=== PATIENT | female | born 1970 | race Caucasian/White ===

== ENCOUNTER → 2019-08-22 12:42 | Outpatient (CLI) | payer OTHER, SELFPAY ==
--- NOTE | ~2019-08-22 | MR_ITS ---
EXAMINATION: MR ankle RT wo con DATE: 08/22/2019 13:28 INDICATION: Right ankle injury presenting with pain, swelling and bruising. TECHNIQUE: Magnetic resonance imaging (MRI) of the right ankle was performed without intravenous cont rast. Sequences included sagittal, coronal, and axial proton-density weighted fast spin echo without and with fat saturation. COMPARISON: None. FINDINGS: Medial ankle ligaments: Deep and superficial deltoid ligaments as well as the spring ligament are normal. Lateral ankle ligaments: The anterior and posterior inferior tibiofibular ligaments are normal. The anterior talofibular, calc aneofibular and posterior talofibular ligaments are normal. Tendons: Achilles tendon is normal. The peroneus longus and brevis tendons are normal. The tibialis anterior a nd extensor hallucis longus and extensor digitorum longus tendons are normal. The tibialis posterior, flexor digitorum longus and flexor hallucis longus tendons are normal. Plantar fascia: Plantar aponeurosis is normal. Bones/other: Alignment is normal. Marrow edema along the medial inferior articular surface of the head of the talu s without evident fracture which given history of trauma or represent a bone contusion. Similar small region of mild marrow edema without fracture line along the superolateral aspect of the posterior ca lcaneus near but not underlying the articular surface of the posterior facet of the subtalar joint. F inally there is marrow edema without evident fracture line along the lateral margin of the anterior c alcaneus abutting the calcaneocuboid articulation which could also represent a bone contusion althoug h there is thickening and increased signal of the dorsal calcaneonavicular ligament suggesting possib le associated partial tear. Joint spaces appear relatively preserved. Mild subarticular cystic change along the medial malleolus. Fluid: Physiologic amount of fluid in the joint spaces. No abnormal fluid collections. IMPRESSION: 1. Marrow edema along the inferior head of the talus, at the anterior calcaneus and posterior calcane us without evident fracture lines most likely related to bone contusions. 2. Possible associated partial tear of the dorsal calcaneocuboid ligament. Reviewed, dictated and finalized at location A. OSIVES HANDLER IMPRESSION: 1. Marrow edema along the inferior head of the talus, at the anterior calcaneus and posterior calcaneus without evident fracture lines most likely related to bone contusions. 2. Possible associated partial tear of the dorsal calcaneocuboid ligament.
== END ==
PROVIDERS: Visit Provider Emergency Medicine
DX: M79.89 Other specified soft tissue disorders (principal)
CPT/HCPCS: 73721

== ENCOUNTER 2019-09-19 14:27 | Outpatient (CLI) | payer OTHER, SELFPAY ==
--- NOTE | ~2019-09-19 | MM_ITS ---
EXAMINATION: MM screening chang BI w leta HISTORY: Screening mammogram TECHNIQUE: Craniocaudal and mediolateral oblique 3-D tomosynthesis images were obtained and synthetic 2-D images were generated. CAD analysis was submitted and interpreted. COMPARISON: 05/24/2018 bilateral digital screening mammogram BREAST PARENCHYMAL COMPOSITION: There are scattered areas of fibroglandular density. FINDINGS: There is no evidence of suspicious mass, calcification, or architectural distortion to sugg est malignancy in either breast. There has been no suspicious interval change. IMPRESSION: 1. No mammographic evidence of malignancy. 2. Recommend routine screening mammography in one year. BI-RADS Category 1: Negative Reviewed, dictated and finalized at location A. OUT FORMER
== END 2019-09-19 14:28 | disposition home or self-care (01) ==
LOC: ANHIMG 14:31
PROVIDERS: PCP Emergency Medicine; Visit Provider Obstetrics & Gynecology
DX: Z12.31 Encounter for screening mammogram for malignant neoplasm of breast (principal)
CPT/HCPCS: 77063; 77067

== ENCOUNTER 2021-01-07 14:54 | Outpatient (CLI) | payer OTHER, SELFPAY ==
--- NOTE | ~2021-01-07 | MM_ITS ---
EXAMINATION: MM screening chang BI w leta HISTORY: Screening mammogram TECHNIQUE: Craniocaudal and mediolateral oblique 3-D tomosynthesis images were obtained and synthetic 2-D images were generated. CAD analysis was submitted and interpreted. COMPARISON: 09/19/2019, 06/03/2018 bilateral digital screening mammogram examinations BREAST PARENCHYMAL COMPOSITION: There are scattered areas of fibroglandular density. FINDINGS: Stable fibroglandular asymmetry. There is no evidence of suspicious mass, calcification, or architectural distortion to suggest malignancy in either breast. There has been no suspicious interv al change. IMPRESSION: 1. No mammographic evidence of malignancy. 2. Recommend routine screening mammography in one year. BI-RADS Category 1: Negative Reviewed, dictated and finalized at location A.
== END 2021-01-07 14:55 | disposition home or self-care (01) ==
LOC: ANHIMG 14:56
PROVIDERS: PCP Emergency Medicine; Visit Provider Obstetrics & Gynecology
DX: Z12.31 Encounter for screening mammogram for malignant neoplasm of breast (principal)
CPT/HCPCS: 77063; 77067

== ENCOUNTER 2021-12-28 06:16 | Emergency (ER) | payer OTHER, SELFPAY ==
--- NOTE | ~2021-12-28 | XR_ITS ---
XR chest 2V DATE: 12/28/2021 07:19 INDICATION: Left-sided chest pressure TECHNIQUE: PA and lateral views COMPARISON: None FINDINGS: Normal heart size. Prominent right cardiac phrenic fat pad. There is mild aortic unfolding. No hilar or mediastinal enlargement. No pulmonary infiltrate or consolidation, pleural effusion or pulmonary vascular congestion or pneumo thorax. Included skeletal structures are unremarkable. IMPRESSION: No active cardiopulmonary disease Reviewed, dictated and finalized at location A.
[2021-12-28 06:26] VITALS: BP 133/98; PULSE 64; RESP 13; TEMP 36.7; O2SAT 100
[2021-12-28 06:28] VITALS: PULSE 68
--- NOTE | 2021-12-28 06:28 | ECG_ITS ---
Measurements Intervals [place] Rate: 66 P: 31 KS: 162 QRS: 59 QRSD: 82 T: 56 QT: 405 QTc: 427 Interpretive Statements SINUS RHYTHM NORMAL ECG NO PREVIOUS ECG AVAILABLE FOR COMPARISON Electronically Signed On 12-28-2021 10:30:32 CDT by Jewel Fall M.D.
--- NOTE | 2021-12-28 06:33 | ED.CHESTPAIN ---
HPI - Chest Pain General Chief Complaint: Chest Pain <Andriy Barajas MD - Last Filed: 12/28/21 06:41> Stated Complaint: chest pain <Andriy Barajas MD - Last Filed: 12/28/21 06:41> Time Seen by Provider: 12/28/21 06:33 <Andriy Barajas MD - Last Filed: 12/28/21 06:41> History of Present Illness HPI narrative: Patient is a 51-year-old female who presents ER with left-sided chest pain. Left-sided chest up near the clavicle. Aching and sharp intermittently. Began at midnight. She felt like it radiated into her neck and then she felt some tingling in her pinky finger. She had a father who had AK at age 45. This is concerned her and prompted her to seek evaluation. No exertional chest pain or discomfort. No dyspnea or nausea or vomiting. No known injury. <Andriy Barajas MD - Last Filed: 12/28/21 06:41> Related Data Allergies/Adverse Reactions: Allergies Allergy/AdvReac Type Severity Reaction Status Date / Time shellfish derived Allergy Unknown Verified 08/09/19 22:38 Sulfa (Sulfonamide Allergy Unknown Verified 08/09/19 22:38 Antibiotics) <Andriy Barajas MD - Last Filed: 12/28/21 06:41> Review of Systems Review of Systems: All systems reviewed & are unremarkable except as noted in HPI and below <Andriy Barajas MD - Last Filed: 12/28/21 06:41> Constitutional: Constitutional: Denies chills and Denies fever(s) <Andriy Barajas MD - Last Filed: 12/28/21 06:41> Cardiovascular: Cardiovascular: Reports chest pain, Denies rapid heart rate and Reports radiating jaw, neck or arm pain <Andriy Barajas MD - Last Filed: 12/28/21 06:41> Respiratory: Respiratory: Denies cough and Denies dyspnea <Andriy Barajas MD - Last Filed: 12/28/21 06:41> Gastrointestinal: Gastrointestinal: Denies abdominal pain, Denies nausea and Denies vomiting <Andriy Barajas MD - Last Filed: 12/28/21 06:41> Musculoskeletal: Musculoskeletal: Denies arthralgias and Denies joint swelling <Andriy Barajas MD - Last Filed: 12/28/21 06:41> Neurologic: Comments: Tingling left pinky <Andriy Barajas MD - Last Filed: 12/28/21 06:41> PMFSH Past Medical History Medical History: Medical History (Updated 12/28/21 @ 07:35 by Андрей Velazquez MD) Patient denies medical problems <Andriy Barajas MD - Last Filed: 12/28/21 06:41> Surgical History Surgical History: Surgical History (Updated 12/28/21 @ 06:41 by Andriy Barajas MD) H/O breast biopsy <Andriy Barajas MD - Last Filed: 12/28/21 06:41> Family History Family History: Family History Other Family history of coronary artery disease Family history of glaucoma Family history of malignant neoplasm of uterus Family history of osteoporosis <Andriy Barajas MD - Last Filed: 12/28/21 06:41> Social History Social History: Social History Smoking status: Never smoker Alcohol intake: current <Andriy Barajas MD - Last Filed: 12/28/21 06:41> Exam Narrative: GENERAL: Well-appearing, well-nourished, and in no acute distress. HEAD: Normocephalic, atraumatic. NECK: Supple. CHEST: Clear to auscultation. No respiratory distress. HEART: Regular rate and rhythm. No murmur heard. Normal peripheral pulses. ABDOMEN: Soft, nontender, nondistended. EXTREMITIES: Normal range of motion. No edema. SKIN: Warm, dry, no rash. NEURO: Alert and oriented x3. PSYCH: Normal mood and affect. <Andriy Barajas MD - Last Filed: 12/28/21 06:41> Course Vital Signs Vital signs: Vital Signs Temperature 36.7 C 12/28/21 06:26 Pulse Rate 64 12/28/21 06:26 Respiratory Rate 13 12/28/21 06:26 Blood Pressure 133/98 H 12/28/21 06:26 Pulse Oximetry 100 12/28/21 06:26 Oxygen Delivery Room Air 12/28/21 06:26 Temperature 36.7 C 12/28/21 06:26 Pulse Rate 63
[2021-12-28 07:00] LABS: Basophils Absolute Auto 0.1 K/mm3 (0.0-0.1); Basophils Percent Auto 0.9 % (0.2-1.2); Eosinophils Absolute Auto 0.3 K/mm3 (0-0.3); Eosinophils Percent Auto 5.1 % (0-4.4); Hematocrit 42.1 % (37.0-47.0); Hemoglobin 13.8 g/dL (12.0-15.0); Immature Granulocyte Absolute 0.01 K/mm3 (0.00-0.031); Immature Granulocyte Percent A 0.2 % (0-0.5); Lymphocytes Absolute Auto 1.92 K/mm3 (0.9-3.2); Lymphocytes Percent Auto 34.7 % (18.3-44.2); Mean Corpuscular HGB Conc 32.8 g/dl (32-36); Mean Corpuscular Hemoglobin 31.7 pg (26-34); Mean Corpuscular Volume 96.8 fl (80-100); Mean Platelet Volume 10.7 fl (7.4-10.4); Monocytes Absolute Auto 0.5 K/mm3 (0.1-0.6); Monocytes Percent Auto 9.7 % (2.6-8.5); Neutrophils Absolute Auto 2.7 K/mm3 (1.3-6.7); Neutrophils Percent Auto 49.4 % (45.5-73.1); Platelet Count Result 257 k/mm3 (150-375); Red Blood Count 4.35 M/mm3 (4.2-5.4); Red Cell Distribution Width 11.9 % (11.5-14.5); White Blood Count 5.5 K/mm3 (4.5-10.0)
[2021-12-28 07:07] VITALS: BP 122/87; PULSE 67; RESP 16; O2SAT 100
[2021-12-28 07:12] LABS: Alanine Aminotransferase 54 U/L (6-35); Albumin Level 4.6 g/dL (3.5-5.1); Alkaline Phosphatase 74 U/L (38-126); Anion Gap 6 mmol/L (8-16); Aspartate Amino Transferase 46 U/L (14-36); Bilirubin,Total 0.5 mg/dL (0.2-1.3); Blood Urea Nitrogen 17 mg/dL (7-17); Calcium 8.7 mg/dL (8.4-10.2); Carbon Dioxide 22 mmol/L (22-30); Chloride 109 mmol/L (98-107); Estimated CRCL calculation 73 ml/min; Estimated Glomerular Filt Rate > 60; Glucose 96 mg/dL (65-110); Lipase 278 U/L (23-300); Potassium 3.8 mmol/L (3.4-5.0); Sodium 137 mmol/L (137-145)
[2021-12-28 07:19] LABS: Prothrombin Time 12.6 Seconds (11.1-14.7)
[2021-12-28 07:20] LABS: Partial Thromboplastin Time 31.3 SECONDS (22.3-36.8)
[2021-12-28 07:22] LABS: Troponin I < 0.012 ng/mL (0.000-0.034)
[2021-12-28 07:45] VITALS: BP 121/63; PULSE 63; RESP 18; O2SAT 99
== END 2021-12-28 07:47 | disposition home or self-care (01) ==
PROVIDERS: Emergency Medicine; Emergency Provider Emergency Medicine; PCP Emergency Medicine
DX: R07.9 Chest pain, unspecified (principal)
CPT/HCPCS: 36415; 71046; 80053; 83690; 84484; 85025; 85610; 85730; 93005; 99284

== ENCOUNTER 2022-07-24 07:50 | Emergency (ER) | payer OTHER, SELFPAY ==
[2022-07-24] VITALS (16 sets, daily range): BP systolic 116–143; BP diastolic 77–95; PULSE 79–107; RESP 9–21; TEMP 37.2; O2SAT 95–100
--- NOTE | ~2022-07-24 | CT_ITS ---
EXAMINATION: CT abdomen pelvis wo con DATE: 07/24/2022 08:21 INDICATION: Left-sided abdominal pain TECHNIQUE: Computed tomography (CT) of the abdomen and pelvis was performed without intravenous contr ast. The dose-length product (DLP) was 512.59 mGy-cm. Automated exposure control and iterative recons truction technique were employed. COMPARISON: None FINDINGS: Minimal dependent atelectasis is present in the lung bases. The heart size is normal. The l iver, spleen, pancreas, and adrenal glands are normal. There is a stone in the nondistended gallbladd er. The kidneys are unremarkable. There is a mildly enlarged retroperitoneal lymph node adjacent to t he distal inferior vena cava. Colonic diverticulosis is present. There is wall thickening of the prox imal sigmoid colon with stranding of the adjacent perisigmoid fat. No perforation or associated absce ss are identified. There are no dilated loops of bowel. There is mild lumbar spondylosis. There is a tiny umbilical hernia containing fat. IMPRESSION: 1. Uncomplicated sigmoid diverticulitis. 2. Mildly enlarged retroperitoneal lymph node, likely reactive. Reviewed, dictated and finalized at location B. T PRODUCTION SUPERVISOR
[2022-07-24 08:11] LABS: Basophils Percent Auto 0.3 % (0.2-1.2); Eosinophils Absolute Auto 0.1 K/mm3 (0-0.3); Hematocrit 44.5 % (37.0-47.0); Immature Granulocyte Absolute 0.04 K/mm3 (0.00-0.031); Immature Granulocyte Percent A 0.4 % (0-0.5); Lymphocytes Absolute Auto 1.84 K/mm3 (0.9-3.2); Mean Corpuscular HGB Conc 33.7 g/dl (32-36); Mean Corpuscular Hemoglobin 31.8 pg (26-34); Mean Corpuscular Volume 94.3 fl (80-100); Monocytes Absolute Auto 0.7 K/mm3 (0.1-0.6); Monocytes Percent Auto 6.9 % (2.6-8.5); Neutrophils Percent Auto 72.4 % (45.5-73.1); Platelet Count Result 257 k/mm3 (150-375); Red Blood Count 4.72 M/mm3 (4.2-5.4); Red Cell Distribution Width 11.8 % (11.5-14.5); White Blood Count 9.7 K/mm3 (4.5-10.0)
--- NOTE | 2022-07-24 08:11 | ED.ABDPAIN ---
HPI - Abdominal Pain General Chief Complaint: Abdominal Pain Stated Complaint: L groin pain Time Seen by Provider: 07/24/22 07:59 Source: RN notes reviewed History of Present Illness HPI narrative: Patient presents emergency department from home for abdominal pain. Patient states symptoms began last night. The pain is located left side the abdomen does not radiate described as sharp and stabbing in nature. States the pain is worse when she tries to sit up or move. Patient states she did not take anything for the pain. She denies any fevers or chills denies any chest pain or shortness of breath nausea vomiting diarrhea or any other symptoms. Related Data Allergies Allergy/AdvReac Type Severity Reaction Status Date / Time shellfish derived Allergy Unknown Verified 03/28/22 10:39 Sulfa (Sulfonamide Allergy Unknown Verified 03/28/22 10:39 Antibiotics) Review of Systems Review of Systems: Gen.: Denies fevers or chills ENT: Denies congestion Respiratory: Denies shortness of breath or cough CV: Denies chest pain or palpitations GI: HPI denies burning, urgency, frequency or hematuria Musculoskeletal: Denies back pain or muscle pain Neuro: Denies numbness, tingling, weakness or focal weakness Skin: Denies rash Except as documented, all other systems reviewed and negative [facility] Past Medical History Medical History Patient denies medical problems Surgical History Surgical History (Updated 03/28/22 @ 10:39 by Musa Dolan) H/O breast biopsy Family History Family History (System 03/28/22 @ 10:39 by Musa Dolan) Other Family history of coronary artery disease Family history of glaucoma Family history of malignant neoplasm of uterus Family history of osteoporosis Social History Social History Smoking status: Never smoker Alcohol intake: current Exam Narrative: APPEARANCE: No acute distress, nontoxic, resting in bed HEENT: Normocephalic, atraumatic, OMM RESPIRATORY: No respiratory distress, clear to auscultation bilaterally with no rhonchi wheezing or rales CARDIOVASCULAR: RRR s murmur ABDOMINAL: Soft nondistended tender palpation left lower quadrant and left upper quadrant no tenderness in right upper quadrant right lower quadrant no rebound or guarding MUSCULOSKELETAl: Moves all extremities. No clubbing, cyanosis or edema. NEURO: Awake and alert. Following commands, speech normal, no focal deficits SKIN:: Warm, dry. Normal Color PSYCHIATRIC: Normal affect/mood Course Course Emergency Course: Patient states that they are feeling much better at this time. States abdominal pain has improved repeat abdominal exam shows the patient's abdomen to be soft and nontender. Discussed with patient results of workup and diagnosis. Discussed need for follow-up with primary care physician, reasons to return to the emergency department in proper use of medication. Patient understands and agrees to current treatment plan Vital Signs Vital signs: Vital Signs Temperature 98.9 F 07/24/22 07:55 Pulse Rate 107 H 07/24/22 07:55 Respiratory Rate 18 07/24/22 07:55 Blood Pressure 143/82 H 07/24/22 07:55 Pulse Oximetry 95 07/24/22 07:55 Temperature 98.9 F 07/24/22 07:55 Pulse Rate 107 H 07/24/22 07:55 Respiratory Rate 18 07/24/22 07:55 Blood Pressure 143/82 H 07/24/22 07:55 Pulse Oximetry 95 07/24/22 07:55 MDM - Abdominal Pain Differential Diagnosis Differential diagnosis: Likely acute appendicitis, calculus of kidney, constipation, diverticulitis, endometriosis, gastroenteritis and pancreatitis Lab Data Attestation: I reviewed the patient's lab results. 07/24/22 08:04 07/24/22 08:04 Labs: Lab Results 07/24/22 07/24/22 07/24/22 Range/Units 08:04 08:04 08:52 WBC 9.7 (4.5-10.0) K/mm3 RBC 4.72 (4.2-5.4) M/mm3 Hgb 15.0 (12.0
--- NOTE | 2022-07-24 08:17 | PC.NURSE ---
Patient to CT
[2022-07-24 08:20] LABS: Alanine Aminotransferase 41 U/L (6-35); Albumin Level 4.9 g/dL (3.5-5.1); Alkaline Phosphatase 92 U/L (38-126); Anion Gap 10 mmol/L (8-16); Aspartate Amino Transferase 31 U/L (14-36); Bilirubin,Total 0.8 mg/dL (0.2-1.3); Blood Urea Nitrogen 13 mg/dL (7-17); Calcium 9.2 mg/dL (8.4-10.2); Carbon Dioxide 25 mmol/L (22-30); Chloride 102 mmol/L (98-107); Estimated CRCL calculation 66 ml/min; Estimated Glomerular Filt Rate > 60; Glucose 102 mg/dL (65-110); Lipase 179 U/L (23-300); Potassium 3.3 mmol/L (3.4-5.0); Sodium 137 mmol/L (137-145)
[2022-07-24] MEDS: KETOROLAC 30 MG/ML VIAL (*BKC) IV PUSH (08:28)
[2022-07-24] MEDS: SODIUM CHLORIDE 0.9% IV 1,000 ML 999 ML IV CONT (08:28)
--- NOTE | 2022-07-24 08:35 | PC.NURSE ---
Patient unable to urinate
[2022-07-24] MEDS: MORPHINE SULFATE (*CRX) 4 MG/ML INJ IV PUSH (08:56)
[2022-07-24 09:01] LABS: Add Urine Microscopic? YES; Appearance Urine Clear (Clear); Bilirubin Urine Negative (Negative); Blood Urine Trace-Intact (Negative); Color Urine Yellow (Yellow); Glucose Urine UA Negative (Negative); Ketones Urine Negative (Negative); Leukocyte Esterase Ur Negative LEU/UL (Negative); Nitrate Urine Negative (Negative); Protein Urine Negative (Negative); Urobilinogen Urine 0.2 mg/dL (<2.0); pH Urine 8.5 (5.0-9.0)
[2022-07-24 09:08] LABS: Bacteria Urine Trace /hpf; Mucus Urine Rare /lpf; RBC Urine 0-2 /hpf (0-2); WBC Urine 0-3 /hpf
[2022-07-24] MEDS: AMOXICILLIN/CLAVULANATE K 875-125 MG TAB 1 TABLET PO (09:52)
== END 2022-07-24 10:12 | disposition home or self-care (01) ==
PROVIDERS: Emergency Provider Emergency Medicine; PCP Emergency Medicine
DX: K57.32 Diverticulitis of large intestine without perforation or abscess without bleeding (principal)
CPT/HCPCS: 36415; 74176; 80053; 81001; 81025; 83690; 85025; 96361; 96374; 96375; 99284; A9270; J1885; J2270; J7030

== ENCOUNTER 2022-08-15 15:53 | Outpatient (CLI) | payer OTHER, SELFPAY ==
--- NOTE | ~2022-08-15 | MM_ITS ---
EXAMINATION: MM screening [facility] BI w leta HISTORY: Screening TECHNIQUE: Craniocaudal and mediolateral oblique 3-D tomosynthesis images were obtained and synthetic 2-D images were generated. CAD analysis was submitted and interpreted. COMPARISON: Comparison to multiple prior studies sequentially, with oldest reviewed study dated 03/2018. BREAST PARENCHYMAL COMPOSITION: There are scattered areas of fibroglandular density. FINDINGS: There is no evidence of suspicious mass, calcification, or architectural distortion to sugg est malignancy in either breast. There has been no suspicious interval change. IMPRESSION: 1. No mammographic evidence of malignancy. 2. Recommend routine screening mammography in one year. BI-RADS Category 1: Negative Reviewed, dictated and finalized at location A. GLE PACKER
== END 2022-08-15 15:54 | disposition home or self-care (01) ==
PROVIDERS: PCP Emergency Medicine; Visit Provider Obstetrics & Gynecology
DX: Z12.31 Encounter for screening mammogram for malignant neoplasm of breast (principal)
CPT/HCPCS: 77063; 77067